=== PATIENT | female | born 1975 | race Caucasian/White ===

== ENCOUNTER 2023-10-11 15:50 | Emergency (ER) | payer OTHER ==
[~2023-10-11] VITALS: Ht 149.9 cm; Wt 68.0 kg
[2023-10-11 16:43] LABS: APPEARANCE,URINE CLOUDY (CLEAR); BILIRUBIN,URINE NEGATIVE (NEGATIVE); COLOR,URINE YELLOW (YELLOW); GLUCOSE, URINE (UA) NEGATIVE (NEGATIVE); KETONES,URINE 100 mg/dL (NEGATIVE); LEUKOCYTE ESTERASE ,URINE 500 Leu/uL (NEGATIVE); NITRATE,URINE NEGATIVE (NEGATIVE); OCCULT BLOOD,URINE LARGE (NEGATIVE); PROTEIN,URINE 50 mg/dL (NEGATIVE); UROBILINOGEN,URINE 0.2 mg/dL (0.2-1.0)
[2023-10-11 16:44] LABS: ADD UA MICROSCOPIC YES
[2023-10-11 16:44] LABS: BASOPHILS # (AUTO) 0.04 K/uL (0.00-0.20); BASOPHILS % (AUTO) 0.3 % (0.0-5.0); EOSINOPHILS # (AUTO) 0.04 K/uL (0.00-0.70); EOSINOPHILS % (AUTO) 0.3 % (0.0-8.0); HEMATOCRIT 39.5 % (36-48); IMMATURE GRANULOCYTE ABSOLUTE 0.07 K/uL (0-1); LYMPHOCYTES # (AUTO) 0.9 K/uL (1.0-4.8); LYMPHOCYTES % (AUTO) 5.7 % (21.0-51.0); MEAN CORPUSCULAR HEMOGLOBIN 32.2 pg (27.0-33.0); MEAN CORPUSCULAR HGB CONC 33.4 g/dL (32.0-36.0); MEAN CORPUSCULAR VOLUME 96.3 fL (79-99); MONOCYTES # (AUTO) 1.1 K/uL (0.1-1.0); MONOCYTES % (AUTO) 6.8 % (3.0-13.0); NEUTROPHILS # (AUTO) 13.6 K/uL (1.8-7.7); NEUTROPHILS % (AUTO) 86.5 % (40.0-77.0); PLATELET COUNT (AUTO) 271 K/uL (130-400); RED CELL DISTRIBUTION WIDTH 13.3 % (11.0-15.5); WHITE BLOOD COUNT (AUTO) 15.7 K/uL (4.8-10.8)
[2023-10-11 16:48] LABS: BACTERIA,URINE FEW /HPF (None Seen); MUCUS,URINE RARE LPF (None Seen); RBC,URINE 26-50 /HPF (0-1); SQUAMOUS EPITHELIAL CELL,UR FEW /HPF (0-2); WBC,URINE >100 /HPF (0-1)
[2023-10-11 16:58] LABS: CREATININE 0.8 mg/dL (0.5-1.0); POTASSIUM 3.5 mmol/L (3.5-5.1)
[2023-10-11] MEDS: CEFTRIAXONE 2GM VIAL IVPB ONE (16:59)
[2023-10-11] MEDS: 0.9%NACL 1000ML 1,000 ML IV ONE (16:59)
[2023-10-11] MEDS: KETOROLAC 30MG VIAL (30MG/ML) IVP ONE (16:59)
[2023-10-11 17:03] LABS: ALBUMIN 3.3 g/dL (3.5-5.0); BILIRUBIN,TOTAL 0.3 mg/dL (0.2-1.0)
[2023-10-11] MEDS ORDERED: IBUP-2077 PO (17:26)
[2023-10-11] MEDS ORDERED: LEVO750T68 PO (17:26)
[2023-10-11] MEDS: SOLU-MEDROL 125MG VIAL IVP ONE (17:37)
[2023-10-11] MEDS: IBUPROFEN 800 MG TAB PO ONE (17:39)
[2023-10-11 18:03] VITALS: BP 132/79; PULSE 99; RESP 17; O2SAT 98
== END 2023-10-11 18:04 | disposition home or self-care (01) ==
LOC: EDH 15:50
DX: N10 Acute pyelonephritis (principal); E87.1 Hypo-osmolality and hyponatremia
CPT/HCPCS: 99285; 74176; 96365; 96375; 80053; 85025; 87040 ×2; 87088; 83605; 81001; 36415; J7030; J2919; J0696; J1885